=== PATIENT | male | born 1945 | race Caucasian/White ===

== ENCOUNTER 2019-04-01 07:30 | Emergency (ER) | payer MEDICARE ==
[~2019-04-01] VITALS: Ht 172.7 cm; Wt 84.8 kg
--- NOTE | 2019-04-01 08:00 | NUR ---
ATTEMPTED TO PLACE 16F HARTMAN CATH, UNABLE TO ADVANCE CATHETER PAST PROSTATE, ATTEMPTED TO USE 18F COUDE CATHETER, UNABLE TO ADVANCE CATHETER PAST PROSTATE DR GOINS ATTEMPTED TO PLACE HARTMAN CATHETER IN PATIENT, WAS UNSUCCESSFUL. PT TOLERATED WELL. CALLED MARTHA COLUNGA TO ADVISE ON POC.
--- NOTE | 2019-04-01 08:39 | NUR ---
PT INFORMED OF THE NEED TO TRANSFER TO [facility] FOR A UROLOGY CONSULT, PT CHOSE TO SIGN OUT AMA, DR GOINS NOTIFIED, PT SIGNED AMA FORM AND PLACED IN CHART.
== END 2019-04-01 08:41 | disposition left against medical advice (07) ==
LOC: FSED 07:30
DX: N40.1 Benign prostatic hyperplasia with lower urinary tract symptoms (principal); R33.8 Other retention of urine
CPT/HCPCS: 99283